=== PATIENT | male | born 1975 | race Caucasian/White ===

== ENCOUNTER 2023-07-19 03:22 | Emergency (ER) | payer SELFPAY ==
[~2023-07-19] VITALS: Ht 157.5 cm; Wt 122.0 kg
[2023-07-19 03:28] VITALS: O2SAT 96
[2023-07-19 04:22] LABS: CLARITY URINE CLEAR (CLEAR); COLOR URINE YELLOW (YELLOW); GLUCOSE URINE NEGATIVE (NEGATIVE); KETONES URINE NEGATIVE (NEGATIVE); LEUKOCYTE ESTERASE URINE 1+ (NEGATIVE); NITRITE URINE NEGATIVE (NEGATIVE); OCCULT BLOOD URINE NEGATIVE (NEGATIVE); PROTEIN URINE NEGATIVE (NEGATIVE); SPECIFIC GRAVITY URINE 1.019 (1.005-1.030); UROBILINOGEN URINE 0.2 E.U./dL (0.2-1.0)
[2023-07-19] MEDS ORDERED: KETOROLAC 30MG/ML VIAL IV STA (04:23)
[2023-07-19] MEDS ORDERED: ONDANSETRON HCL 4MG/2ML INJ IV STA (04:23)
[2023-07-19] MEDS ORDERED: SODIUM CHLORIDE 0.9% 1,000 ML IV ONE (04:30)
[2023-07-19 04:51] LABS: BACTERIA URINE NONE SEEN; RBC URINE NONE SEEN /hpf (0-2); SQUAMOUS EPITHELIAL CELL URINE FEW /lpf (RARE/1+)
[2023-07-19 05:27] LABS: HEMATOCRIT. 46.2 % (42.0-52.0); HEMOGLOBIN. 14.9 g/dL (14.0-18.0); MEAN CORPUSCULAR HEMOGLOBIN 27.2 pg (28.0-32.0); MEAN CORPUSCULAR HGB CONC 32.2 g/dL (31.0-37.0); MEAN CORPUSCULAR VOLUME 84.7 fL (80.0-94.0); MEAN PLATELET VOLUME 8.5 fl (7.4-10.4); PLATELET 234 x1000/uL (130-400); RED BLOOD CELL COUNT 5.46 mill/uL (4.7-6.1); WHITE BLOOD COUNT 16.5 x1000/uL (4.5-11.0)
[2023-07-19 05:41] LABS: ALANINE AMINOTRANSFERASE 18 IU/L (10-49); ALBUMIN 4.1 g/dL (3.2-4.8); ASPARTATE AMINOTRANSFERASE 20 IU/L (<34); BILIRUBIN TOTAL 0.7 mg/dL (0.1-1.0); CALCIUM 8.6 mg/dL (8.7-10.4); CARBON DIOXIDE 25 mEq/L (21-32); CHLORIDE 101 mEq/L (98-107); CREATININE 0.8 mg/dL (0.6-1.3); GLUCOSE 123 mg/dL (70-105); PROTEIN TOTAL 6.8 g/dL (6.0-8.3); SODIUM 136 mEq/L (136-145); UREA NITROGEN BLOOD 10 mg/dL (9-23)
[2023-07-19 05:45] LABS: DIFFERENTIAL COMMENT 1
[2023-07-19 06:01] LABS: LACTIC ACID 3.2 mmol/L (0.4-2.0)
[2023-07-19] MEDS ORDERED: LEVOFLOXACIN 500MG TABLET PO ONE (07:45)
[2023-07-19 08:05] VITALS: BP 132/81; PULSE 110; RESP 16; TEMP 97.4
[2023-07-19] MEDS ORDERED: ONDA4TAB11 PO (08:07)
[2023-07-19] MEDS ORDERED: CIPR-263 MT (08:07)
[2023-07-19] MEDS ORDERED: IBUP-2030 MT (08:07)
[2023-07-19] MEDS ORDERED: OXYC-100 MT (08:07)
[2023-07-19 09:46] LABS: ANISOCYTOSIS 1+; PLATELET ESTIMATE NORMAL
== END 2023-07-19 08:42 | disposition home or self-care (01) ==
LOC: ER 03:22
DX: R10.9 Unspecified abdominal pain (principal)
CPT/HCPCS: 80053; 81003; 83605; 83690; 85025; 36415; 74176; 96374; 96375; 99285; J1885; J2405; J7030; Z7610 ×2